=== PATIENT | female | born 2000 | race Caucasian/White ===

== ENCOUNTER 2020-11-15 17:11 | Emergency (ER) | payer MEDICAID, OTHER, SELFPAY ==
--- NOTE | 2020-11-15 21:22 | RAD REPORT ---
EXAM DESCRIPTION: RAD - Chest Single View - 11/15/2020 9:14 pm CLINICAL HISTORY: COUGH Chest pain. COMPARISON: No comparisons FINDINGS: Portable technique limits examination quality. A mild infiltrate is suspected in the medial right lung base most likely pneumonia. The heart is norm al in size. No displaced fractures. IMPRESSION: Mild medial right lung base pneumonia suspected.
[2020-11-15] MEDS ORDERED: ALBUTEROL INHALER 60 PUFF/8 GM IH ONE (21:37)
[2020-11-15] MEDS ORDERED: BENZONATATE 100 MG CAP PO ONE (21:37)
[2020-11-15] MEDS ORDERED: ONDANSETRON 4 MG (ODT) TAB ONE (21:37)
[2020-11-15 21:59] LABS: SARS-COV-2 RT PCR POSITIVE (NEGATIVE)
--- NOTE | 2020-11-15 22:06 | EDPHYS ---
Physician Documentation [facility] Name: Lydia Santizo Age: 20 yrs Sex: Female : 2000 Arrival Date: 11/15/2020 Time: 17:15 Bed 20 Private MD: ED Physician Cedric Evans HPI: 11/15 20:10 This 20 yrs old Female presents to ER via Ambulatory with complaints of cp Cough, Fever. 20:10 The patient or guardian reports cough, with productive sputum. Onset: The cp symptoms/episode began/occurred 5 day(s) ago. Associated signs and symptoms: Pertinent positives: chest pain, with cough, diarrhea, fever, nausea, sinus congestion. 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 - Social history:: Smoking status: Patient denies any tobacco usage or history of. ROS: 20:15 Constitutional: Positive for body aches, Negative for fever, poor PO intake. cp 20:15 Eyes: Negative for injury, pain, redness, and discharge. cp 20:15 ENT: Negative for drainage from ear(s), ear pain, sore throat, difficulty swallowing, difficulty handling secretions. 20:15 Cardiovascular: Positive for chest pain, with cough, Negative for edema, palpitations. 20:15 Respiratory: Positive for cough, shortness of breath, Negative for wheezing. 20:15 Abdomen/GI: Positive for nausea, Negative for abdominal pain, diarrhea, constipation, active vomiting. 20:15 Neuro: Negative for altered mental status, headache, syncope, weakness. 20:15 All other systems are negative. Exam: 20:20 Constitutional: The patient appears in no acute distress, alert, awake, non-toxic, well cp developed, well nourished. 20:20 Head/Face: Normocephalic, atraumatic. cp 20:20 Eyes: Periorbital structures: appear normal, Conjunctiva: normal, no exudate, no injection, Lids and lashes: appear normal, bilaterally. 20:20 ENT: External ear(s): are unremarkable, Nose: is normal, Mouth: Lips: moist, Oral mucosa: pink and intact, moist, Posterior pharynx: Airway: no evidence of obstruction, patent, Tonsils: are normal in appearance, erythema, is not appreciated, exudate, is not appreciated. 20:20 Neck: ROM/movement: is normal, is supple, without pain, no range of motions limitations, no meningismus. 20:20 Chest/axilla: Inspection: normal, Palpation: is normal, no crepitus, no tenderness. 20:20 Cardiovascular: Rate: normal, Rhythm: regular. 20:20 Respiratory: the patient does not display signs of respiratory distress, Respirations: normal, no use of accessory muscles, no retractions, labored breathing, is not present, Breath sounds: bronchial sounds, that are mild, are heard diffusely, stridor, is not appreciated, wheezing: is not appreciated. 20:20 Abdomen/GI: Exam negative for discomfort, distension, guarding, Inspection: abdomen appears normal. Vital Signs: 17:26 BP 125 / 88; Pulse 95; Resp 17; Temp 98.1; Pulse Ox 96% ; Weight 79.38 kg; Height 4 ft. ll1 11 in. (149.86 cm); Pain 3/10; 21:20 BP 116 / 88; Pulse 65; Resp 16; Pulse Ox 98% on R/A; vg1 17:26 Body Mass Index 35.35 (79.38 kg, 149.86 cm) ll1 17:26 LMP: 3 days ago. ll1 MDM: 20:07 Patient medically screened. cp 21:00 Differential Diagnosis: Bronchitis Influenza Sinusitis Otitis Media Viral Syndrome cp Pneumonia. 22:05 Data reviewed: vital signs, nurses notes, lab test result(s), radiologic studies, plain cp films. 22:05 Test interpretation: by ED physician or midlevel provider: plain radiologic studies. cp Counseling: I had a detailed discussion with the patient and/or guardian regarding: the historical points, exam findings, and any diagnostic results supporting the discharge/admit diagnosis, lab results, radiology results. ED course: VSS. No signs of respiratory distress and patient appears non-toxic. Will discharge to home for continued monitoring. 11/15 20:07 Order name: Strep; Complete Time: 21:28 cp 11/15 21:30 Order name: Throat Culture EDDC 01/16 21:56 Order name: Urine Dipstick--Ancillary (enter results) [facility] 11/15 21:56 Order name: Urine --Ancillary (enter results) [facility] 11/15 20:07 Order name: XRAY Chest (1 view); Complete Time: 21:28 11/15 21:29 Interpretation: Report reviewed. 11/15 20:07 Order name: Urine Dipstick-Ancillary (obtain specimen); Complete Time: 21:56 11/15 20:07 Order name: Urine Test (obtain specimen); Complete Time: 21:56 11/15 22:00 Order name: COVID-19/FLU A+B EDMS Administered Medications: 21:25 Drug: Tessalon Perle 200 mg Route: PO; vg1 22:34 Follow up: Response: No adverse reaction vg1 21:25 Drug: Albuterol HFA Inhaler 2 puffs Route: Inhalation; vg1 22:34 Follow up: Response: No adverse reaction vg1 21:25 Drug: Zofran (Ondansetron) 4 mg Route: PO; vg1 22:34 Follow up: Response: No adverse reaction vg1 22:30 Drug: Rocephin (cefTRIAXone) 1 grams Route: IM; Site: left gluteus; vg1 22:34 Follow up: Response: Medication administered at discharge. vg1 Point of Care Testing: Urine : 21:56 hCG Reading: Negative; Control Reading: Positive; jp3 Disposition: 11/16 07:03 Co-signature as Attending Physician, Cedric Evans MD. mh7 Disposition: 11/15/20 22:06 Discharged to Home. Impression: Coronavirus infection, unspecified, Pneumonia due to other specified infectious organisms. - Condition is Stable. - Discharge Instructions: Community-Acquired Pneumonia, Adult, COVID-19. - Prescriptions for Tessalon Perles 100 mg Oral Capsule - take 2 capsule by ORAL route every 8 hours As needed; 30 capsule. Zithromax Z- Justin 250 mg Oral Tablet - take 1 tablet by ORAL route as directed for 5 days Day 1 - take two (2) tablets one time. Day 2, 3, 4 , 5 take one (1) tablet once daily.; 6 tablet. Prednisone 20 mg Oral Tablet - take 1 tablet by ORAL route every 12 hours for 5 days then take 1/2 tablet every 12 hours for 5 days; 10 tablet. Albuterol Sulfate 90 mcg/actuation - inhale 1-2 puff by INHALATION route every 4-6 hours; 1 Inhaler. Augmentin 875- 125 mg Oral Tablet - take 1 tablet by ORAL route every 12 hours for 10 days; 20 tablet. - Medication Reconciliation Form, Thank You Letter, Antibiotic Education, Prescription Opioid Use form. - Follow up: Private Physician; When: 2 - 3 days; Reason: Worsening of condition. - Problem is new. - Symptoms have improved. Signatures: Dispatcher [employer] EDMS Baljit Croft PA PA cp Jose Roberto DomenicaJamila mw2 María Hernandez, RN RN vg1 Fariha Peck RN RN ll1 Cedric Evans MD MD mh7 Corrections: (The following items were deleted from the chart) 11/15 20:53 20:08 Influenza Screen (A \T\ B)+BA.LAB.BRZ ordered. EDMS EDMS 20:54 20:07 CORONAVIRUS+MR.LAB.BRZ ordered. EDDC EDMS 22:32 22:06 11/15/2020 22:06 Discharged to Home. Impression: Coronavirus infection, mw2 unspecified; Pneumonia due to other specified infectious organisms. Condition is Stable. Forms are Medication Reconciliation Form, Thank You Letter, Antibiotic Education, Prescription Opioid Use. Follow up: Private Physician; When: 2 - 3 days; Reason: Worsening of condition. Problem is new. Symptoms have improved. cp
--- NOTE | 2020-11-15 22:06 | ER ---
Nurse's Notes [facility] Name: Lydia Santizo Age: 20 yrs Sex: Female : 2000 Arrival Date: 11/15/2020 Time: 17:15 Bed 20 Private MD: Diagnosis: Coronavirus infection, unspecified;Pneumonia due to other specified infectious organisms Presentation: 11/15 17:26 Chief complaint: Patient states: Cough, congestion, dry heaves, fatigue, decreased ll1 appetite, nasal burning, and body aches for 5 days. OTC cold medication does help. Coronavirus screen: Client denies travel out of the [place] in the last 14 days. congestion, cough unrelated to allergies, diarrhea, fatigue, headache, muscle pain, nausea, Client presents with at least one sign or symptom that may indicate coronavirus-19. Standard/surgical mask placed on the client. Ebola Screen: Patient denies travel to an Ebola-affected area in the 21 days before illness onset. Initial Sepsis Screen: Does the patient meet any 2 criteria? HR > 90 bpm. No. Patient's initial sepsis screen is negative. Does the patient have a suspected source of infection? Yes: Productive cough/pneumonia. Risk Assessment: Do you want to hurt yourself or someone else? Patient reports no desire to harm self or others. Onset of symptoms was November 10, 2020. 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 - Social history:: Smoking status: Patient denies any tobacco usage or history of. Screenin:38 Abuse screen: Denies threats or abuse. Nutritional screening: No deficits noted. vg1 Tuberculosis screening: No symptoms or risk factors identified. Fall Risk None identified. Assessment: 21:20 General: Appears in no apparent distress. comfortable, Behavior is calm, cooperative. vg1 Pain: Denies pain. Neuro: Level of Consciousness is awake, alert, obeys commands, Oriented to person, place, time, situation. Cardiovascular: Patient's skin is warm and dry. Respiratory: Reports cough that is productive, Airway is patent Respiratory effort is even, unlabored, Respiratory pattern is regular, symmetrical, Breath sounds are clear bilaterally. GI: No signs and/or symptoms were reported involving the gastrointestinal system. : No signs and/or symptoms were reported regarding the genitourinary system. EENT: No signs and/or symptoms were reported regarding the EENT system. Derm: Skin is intact, is healthy with good turgor. Musculoskeletal: Circulation, motion, and sensation intact. Vital Signs: 17:26 BP 125 / 88; Pulse 95; Resp 17; Temp 98.1; Pulse Ox 96% ; Weight 79.38 kg; Height 4 ft. ll1 11 in. (149.86 cm); Pain 3/10; 21:20 BP 116 / 88; Pulse 65; Resp 16; Pulse Ox 98% on R/A; vg1 17:26 Body Mass Index 35.35 (79.38 kg, 149.86 cm) ll1 17:26 LMP: 3 days ago. ll1 ED Course: 17:15 Patient arrived in ED. ds1 17:25 Arm band placed on. ll1 17:28 Triage completed. ll1 19:47 Baljit Croft PA is PHCP. cp 19:47 Cedric Evans MD is Attending Physician. cp 20:16 María Hernandez, RN is Primary Nurse. vg1 21:14 XRAY Chest (1 view) In Process Unspecified. EDMS 21:38 Patient has correct armband on for positive identification. Bed in low position. Call vg1 light in reach. 21:45 Urine collected: clean catch specimen, clear, blood tinged. jp3 22:33 No provider procedures requiring assistance completed. Patient did not have IV access vg1 during this emergency room visit. Administered Medications: 21:25 Drug: Tessalon Perle 200 mg Route: PO; vg1 22:34 Follow up: Response: No adverse reaction vg1 21:25 Drug: Albuterol HFA Inhaler 2 puffs Route: Inhalation; vg1 22:34 Follow up: Response: No adverse reaction vg1 21:25 Drug: Zofran (Ondansetron) 4 mg Route: PO; vg1 22:34 Follow up: Response: No adverse reaction vg1 22:30 Drug: Rocephin (cefTRIAXone) 1 grams Route: IM; Site: left gluteus; vg1 22:34 Follow up: Response: Medication administered at discharge. vg1 Point of Care Testing: Urine : 21:56 hCG Reading: Negative; Control Reading: Positive; jp3 Outcome: 22:06 Discharge ordered by . cp 22:32 Patient left the ED. mw2 22:33 Discharged to home ambulatory. vg1 22:33 Condition: stable 22:33 Discharge instructions given to patient, Instructed on discharge instructions, follow up and referral plans. medication usage, Demonstrated understanding of instructions, follow-up care, medications, Prescriptions given X 4. Signatures: Dispatcher [employer] EDMS Pam Chaney ds1 Baljit Croft PA PA cp [place], MyKena mw2 Leif Blum jp3 María Hernandez, RN RN vg1 Fariha Peck RN RN ll1
[2020-11-15 22:07] LABS: Urine Blood 3+ (NEG); Urine Glucose TRACE (NEG); Urine Protein 2+ (NEG); Urine Specific Gravity >1.030 (1.005-1.030); Urine pH 5.5 (5.0-7.0)
[2020-11-15] MEDS ORDERED: LIDOCAINE 1% MPF 2 ML AMPULE ONE (22:30)
[2020-11-15] MEDS ORDERED: CEFTRIAXONE 1000 MG/VIAL ONE (22:30)
[2020-11-15 22:38] VITALS: TEMP 98.1
[2020-11-15 22:39] VITALS: BP 116/88; O2SAT 98
== END 2020-11-15 22:32 | disposition home or self-care (01) ==
LOC: ER 17:11
DX: U07.1 COVID-19 (principal); J12.82 Pneumonia due to coronavirus disease 2019; Z88.1 Allergy status to other antibiotic agents
CPT/HCPCS: 0240U; 71045; 81003; 81025; 87070; 87081; 96372; 99284; J2001

== ENCOUNTER 2021-03-07 10:27 | Emergency (ER) | payer MEDICAID ==
[2021-03-07 10:55] LABS: Urine Blood Negative (Negative); Urine Glucose Negative (Negative); Urine Protein Negative (Negative); Urine Specific Gravity >=1.030 (1.005-1.030)
[2021-03-07 11:29] LABS: Absolute Lymphocytes (CBC) 2.4 K/uL (0.7-4.9); Basophils % 0.5 % (0-1.3); Hematocrit 37.7 % (36.0-45.0); Lymphocytes % 28.2 % (15.3-44.8); MPV 7.9 fL (7.6-11.3); RBC Red Blood Cell Count 4.65 M/uL (3.86-4.86)
--- NOTE | 2021-03-07 11:30 | RAD REPORT ---
EXAM DESCRIPTION: RAD - Chest Single View - 03/07/2021 11:13 am CLINICAL HISTORY: CHEST PAIN Chest pain. COMPARISON: Chest Single View dated 11/15/2020 FINDINGS: Portable technique limits examination quality. The lungs are grossly clear. The heart is normal in size. No displaced fractures. IMPRESSION: No acute intrathoracic process suspected.
[2021-03-07 11:40] LABS: ALT/SGPT 18 U/L (12-78); AST/SGOT 9 U/L (15-37); Albumin 3.6 g/dL (3.4-5.0); Alkaline Phosphatase 114 U/L (45-117); BUN Blood Urea Nitrogen 11 mg/dL (7-18); Bicarbonate 27 mmol/L (21-32); Bilirubin Direct < 0.1 mg/dL (0-0.2); Bilirubin Total 0.3 mg/dL (0.2-1.0); Glucose Level 95 mg/dL (74-106); Lipase 56 U/L (73-393); Potassium 3.9 mmol/L (3.5-5.1); Protein, Total 8.7 g/dL (6.4-8.2); Sodium Level 140 mmol/L (136-145); Troponin (Emerg Dept Use Only) < 0.02 ng/mL (0.0-0.045)
--- NOTE | 2021-03-07 11:45 | EDPHYS ---
Physician Documentation [facility] Name: Lydia Santizo Age: 21 yrs Sex: Female : 2000 Arrival Date: 03/07/2021 Time: 10:28 Bed 8 Private MD: NEVIL[place] Physician Baljit Ledbetter HPI: 03/07 11:01 This 21 yrs old Female presents to ER via Ambulatory with complaints of beverly Abdominal Pain, Diarrhea. 11:01 The patient presents to the emergency department with nausea, vomiting, diarrhea, that beverly is intermittent. Onset: The symptoms/episode began/occurred 1 day(s) ago. Possible causes: unknown. The symptoms are aggravated by nothing. The symptoms are alleviated by nothing. Associated signs and symptoms: The patient has no apparent associated signs or symptoms. Severity of symptoms: At their worst the symptoms were mild in the emergency department the symptoms are unchanged. The patient has not experienced similar symptoms in the past. 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 - Social history:: Smoking status: Patient denies any tobacco usage or history of. ROS: 11:02 Constitutional: Negative for fever, chills, and weight loss, Eyes: Negative for injury, beverly pain, redness, and discharge, ENT: Negative for injury, pain, and discharge, Neck: Negative for injury, pain, and swelling, Respiratory: Negative for shortness of breath, cough, wheezing, and pleuritic chest pain, Back: Negative for injury and pain, : Negative for injury, bleeding, discharge, and swelling, MS/Extremity: Negative for injury and deformity, Skin: Negative for injury, rash, and discoloration, Neuro: Negative for headache, weakness, numbness, tingling, and seizure, Psych: Negative for depression, anxiety, suicide ideation, homicidal ideation, and hallucinations, Allergy/Immunology: Negative for hives, rash, and allergies, Endocrine: Negative for neck swelling, polydipsia, polyuria, polyphagia, and marked weight changes, Hematologic/Lymphatic: Negative for swollen nodes, abnormal bleeding, and unusual bruising. 11:02 Cardiovascular: Positive for chest pain, of the chest. 11:02 Abdomen/GI: Positive for nausea and vomiting, diarrhea. Exam: 11:02 Constitutional: This is a well developed, well nourished patient who is awake, alert, beverly and in no acute distress. Head/Face: Normocephalic, atraumatic. Eyes: Pupils equal round and reactive to light, extra-ocular motions intact. Lids and lashes normal. Conjunctiva and sclera are non-icteric and not injected. Cornea within normal limits. Periorbital areas with no swelling, redness, or edema. ENT: Nares patent. No nasal discharge, no septal abnormalities noted. Tympanic membranes are normal and external auditory canals are clear. Oropharynx with no redness, swelling, or masses, exudates, or evidence of obstruction, uvula midline. Mucous membranes moist. Neck: Trachea midline, no thyromegaly or masses palpated, and no cervical lymphadenopathy. Supple, full range of motion without nuchal rigidity, or vertebral point tenderness. No Meningismus. Chest/axilla: Normal chest wall appearance and motion. Nontender with no deformity. No lesions are appreciated. Cardiovascular: Regular rate and rhythm with a normal S1 and S2. No gallops, murmurs, or rubs. Normal PMI, no JVD. No pulse deficits. Respiratory: Lungs have equal breath sounds bilaterally, clear to auscultation and percussion. No rales, rhonchi or wheezes noted. No increased work of breathing, no retractions or nasal flaring. Abdomen/GI: Soft, non-tender, with normal bowel sounds. No distension or tympany. No guarding or rebound. No evidence of tenderness throughout. Back: No spinal tenderness. No costovertebral tenderness. Full range of motion. Skin: Warm, dry with normal turgor. Normal color with no rashes, no lesions, and no evidence of cellulitis. MS/ Extremity: Pulses equal, no cyanosis. Neurovascular intact. Full, normal range of motion. Neuro: Awake and alert, GCS 15, oriented to person, place, time, and situation. Cranial nerves II-XII grossly intact. Motor strength 5/5 in all extremities. Sensory grossly intact. Cerebellar exam normal. Normal gait. Psych: Awake, alert, with orientation to person, place and time. Behavior, mood, and affect are within normal limits. 11:02 Musculoskeletal/extremity: Weight bearing: able to fully bear weight, DVT Exam: No signs of deep vein thrombosis. no pain, no swelling, no tenderness, negative Homans' sign noted on exam, no appreciated bluish discoloration, no erythema, no increased warmth. 11:44 ECG was reviewed by the Attending Physician. [facility] Vital Signs: 10:39 BP 119 / 75; Pulse 80; Resp 17; Temp 97.6(TE); Pulse Ox 100% on R/A; Weight 79.38 kg; jl7 Height 4 ft. 11 in. (149.86 cm); Pain 5/10; 10:39 Body Mass Index 35.35 (79.38 kg, 149.86 cm) jl7 MDM: 10:43 Patient medically screened. [facility] 11:04 Differential diagnosis: abnormal EKG, acute myocardial infarction, chest wall pain, beverly cholecystitis, Cholelithiasis costochondritis, Nonspecific abd pain, gastritis, pancreatitis, viral gastroenteritis, gastroenteritis, gastritis, hiatal hernia, peptic ulcer disease, pneumonia, pulmonary embolus, unstable angina. HEART Score: History: Slightly Suspicious (0), ECG: Normal (0), Age: < or = 45 years (0), Risk Factors: No Risk Factors Known (0), Troponin: < or = 1 x Normal Limit (0). The patient's deep vein thrombosis risk score was calculated as follows: Total Score: 0. This patient was found to be at low risk for a deep vein thrombosis by using the Well's assessment criteria. The patient's pulmonary embolism risk score was calculated as follows: Total Score: 0-2 points. This patient was found to be at low risk for a pulmonary embolism by using the Well's assessment criteria. NADER Risk Score: TOTAL SCORE = 0. Data reviewed: vital signs, nurses notes, lab test result(s), radiologic studies, plain films. Data interpreted: night monitor: rate is 80 beats/min, rhythm is regular, Pulse oximetry: on. Test interpretation: by ED physician or midlevel provider: ECG, plain radiologic studies. Counseling: I had a detailed discussion with the patient and/or guardian regarding: the historical points, exam findings, and any diagnostic results supporting the discharge/admit diagnosis, lab results, radiology results. 03/07 10:54 Order name: Basic Metabolic Panel; Complete Time: 11:44 [facility] 03/07 10:54 Order name: CBC with Diff; Complete Time: 11:44 [facility] 03/07 10:54 Order name: Hepatic Function; Complete Time: 11:44 [facility] 03/07 10:54 Order name: Lipase; Complete Time: 11:44 [facility] 03/07 10:54 Order name: D-Dimer; Complete Time: 11:44 [facility] 03/07 10:54 Order name: Troponin (emerg Dept Use Only); Complete Time: 11:44 [facility] 03/07 10:54 Order name: IV Saline Lock; Complete Time: 11:15 [facility] 03/07 10:54 Order name: EKG; Complete Time: 10:55 [facility] 03/07 10:54 Order name: Chest Single View XRAY; Complete Time: 11:44 [facility] 03/07 10:54 Order name: Urine Dipstick-Ancillary; Complete Time: 11:44 [facility] 03/07 10:55 Order name: Urine --Ancillary (enter results); Complete Time: 11:44 03/07 12:05 Order name: SARS-COV-2 RT PCR [facility] 03/07 10:54 Order name: Labs collected and sent; Complete Time: 11:15 [facility] 03/07 10:54 Order name: Urine Dipstick-Ancillary (obtain specimen); Complete Time: 11:15 [facility] 03/07 10:54 Order name: Urine Test (obtain specimen); Complete Time: 11:15 [facility] 03/07 10:54 Order name: EKG - Nurse/Tech; Complete Time: 11:56 [facility] EC:44 Rate is 65 beats/min. Rhythm is regular. QRS [place] is Normal. OH interval is normal. QRS beverly interval is normal. QT interval is normal. No Q waves. T waves are Normal. No ST changes noted. Clinical impression: Normal ECG and No evidence of ischemia. Interpreted by me. Reviewed by me. Administered Medications: 11:15 Drug: NS 0.9% 1000 ml Route: IV; Rate: 1 bolus; Site: right antecubital; sv 12:08 Follow up: Response: No adverse reaction; IV Status: Completed infusion; IV Intake: sv 1000ml Disposition: 03/07/21 11:45 Discharged to Home. Impression: Diarrhea, unspecified, Abdominal tenderness, Chest pain, unspecified - non cardiac. - Condition is Stable. - Discharge Instructions: Abdominal Pain, Adult, Nonspecific Chest Pain, Diarrhea, Adult, Abdominal Pain, Adult, [id number], Nonspecific Chest Pain, [id number], Diarrhea, Adult, [id number]-ez-[id number]. - Prescriptions for Zofran 4 mg Oral Tablet - take 1 tablet by ORAL route every 12 hours As needed; 20 tablet. - Medication Reconciliation Form, Thank You Letter, Antibiotic Education, Prescription Opioid Use, Work release form form. - Follow up: Private Physician; When: 2 - 3 days; Reason: Recheck today's complaints, Re-evaluation by your physician. - Problem is new. - Symptoms have improved. Signatures: Dispatcher [employer] [facility] Jacinta Drake RN RN Baljit Song MD MD cha Leal, Jahala, RN RN jl7 Corrections: (The following items were deleted from the chart) 11:24 10:55 CORONAVIRUS+MR.LAB.BRZ ordered. [facility] EDPR 12:08 11:45 03/07/2021 11:45 Discharged to Home. Impression: Diarrhea, unspecified; Abdominal sv tenderness; Chest pain, unspecified - non cardiac. Condition is Stable. Discharge Instructions: Abdominal Pain, Adult, Nonspecific Chest Pain, Diarrhea, Adult, Abdominal Pain, Adult, [id number], Nonspecific Chest Pain, Zldt-[id number], Diarrhea, Adult, Gyyr-cq-[id number]. Prescriptions for Zofran 4 mg Oral Tablet - take 1 tablet by ORAL route every 12 hours As needed; 20 tablet. and Forms are Medication Reconciliation Form, Thank You Letter, Antibiotic Education, Prescription Opioid Use. Follow up: Private Physician; When: 2 - 3 days; Reason: Recheck today's complaints, Re-evaluation by your physician. Problem is new. Symptoms have improved. beverly
--- NOTE | 2021-03-07 11:45 | ER ---
Nurse's Notes [facility] Name: Lydia Santizo Age: 21 yrs Sex: Female : 2000 Arrival Date: 03/07/2021 Time: 10:28 Bed 8 Private MD: Diagnosis: Diarrhea, unspecified;Abdominal tenderness;Chest pain, unspecified-non cardiac Presentation: 03/07 10:39 Chief complaint: Patient states: Diarrhea, nausea and gagging x 3 days. Coronavirus jl7 screen: Client denies travel out of the [place] in the last 14 days. diarrhea, Client presents with at least one sign or symptom that may indicate coronavirus-19. Standard/surgical mask placed on the client. Provider contacted for isolation considerations. Ebola Screen: No symptoms or risks identified at this time. Initial Sepsis Screen: Does the patient meet any 2 criteria? No. Patient's initial sepsis screen is negative. Does the patient have a suspected source of infection? No. Patient's initial sepsis screen is negative. Risk Assessment: Do you want to hurt yourself or someone else? Patient reports no desire to harm self or others. Onset of symptoms was March 04, 2021. Care prior to arrival: None. 10:39 Method Of Arrival: Ambulatory jl7 10:39 Acuity: MIRACLE 3 jl7 Triage Assessment: 10:41 General: Appears in no apparent distress. uncomfortable, Behavior is calm, cooperative, jl7 appropriate for age. Pain: Complains of pain in umbilical area Pain currently is 5 out of 10 on a pain scale. GI: Reports diarrhea, nausea. 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 - Social history:: Smoking status: Patient denies any tobacco usage or history of. Screenin:05 Abuse screen: Denies threats or abuse. Denies injuries from another. Nutritional sv screening: No deficits noted. Tuberculosis screening: No symptoms or risk factors identified. Fall Risk None identified. Assessment: 11:05 General: Appears in no apparent distress. comfortable, well groomed, well developed, sv Behavior is calm, cooperative, appropriate for age. Pain: Denies pain. Neuro: Level of Consciousness is awake, alert, obeys commands, Oriented to person, place, time, situation, Moves all extremities. Full function Gait is steady, Speech is normal. Respiratory: Respiratory effort is even, unlabored, Respiratory pattern is regular, symmetrical. GI: Abdomen is flat, non-distended, Abd is soft and non tender X 4 quads. Reports diarrhea, Patient currently denies abdominal pain. Derm: Skin is intact, Skin is pink, warm \T\ dry. 12:00 Reassessment: Patient appears in no apparent distress at this time. Patient and/or sv family updated on plan of care and expected duration. Pain level reassessed. Patient is alert, oriented x 3, equal unlabored respirations, skin warm/dry/pink. Vital Signs: 10:39 BP 119 / 75; Pulse 80; Resp 17; Temp 97.6(TE); Pulse Ox 100% on R/A; Weight 79.38 kg; jl7 Height 4 ft. 11 in. (149.86 cm); Pain 5/10; 10:39 Body Mass Index 35.35 (79.38 kg, 149.86 cm) jl7 ED Course: 10:28 Patient arrived in ED. ds1 10:41 Triage completed. jl7 10:41 Arm band placed on right wrist. jl7 10:43 Baljit Ledbetter MD is Attending Physician. [facility] 10:57 Jacinta Drake, RN is Primary Nurse. sv 11:05 Patient has correct armband on for positive identification. Bed in low position. Call sv light in reach. Pulse ox on. NIBP on. Door closed. Head of bed elevated. 11:05 COVID swab sent to lab. Inserted saline lock: 20 gauge in right antecubital area, using sv aseptic technique. Blood collected. Flushed right antecubital with 5 ml normal saline. 11:12 Chest Single View XRAY In Process Unspecified. EDMS 12:08 No provider procedures requiring assistance completed. IV discontinued, intact, sv bleeding controlled, No redness/swelling at site. Pressure dressing applied. Administered Medications: 11:15 Drug: NS 0.9% 1000 ml Route: IV; Rate: 1 bolus; Site: right antecubital; sv 12:08 Follow up: Response: No adverse reaction; IV Status: Completed infusion; IV Intake: sv 1000ml Intake: 12:08 IV: 1000ml; Total: 1000ml. sv Outcome: 11:45 Discharge ordered by . [facility] 12:08 Patient left the ED. sv 12:08 Discharged to home ambulatory. sv 12:08 Condition: stable 12:08 Condition: improved 12:08 Discharge instructions given to patient, Instructed on discharge instructions, follow up and referral plans. medication usage, Demonstrated understanding of instructions, follow-up care, medications, Prescriptions given X 1. Signatures: Dispatcher [employer] Jacinta Keyes, RN RN Baljit Song MD MD cha Sanford, Pam ds1 Gautam Pettit RN RN jl7
[2021-03-07 12:23] VITALS: BP 119/75; TEMP 97.6; O2SAT 100
--- NOTE | 2021-03-08 12:14 | EKG ---
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
== END 2021-03-07 12:08 | disposition home or self-care (01) ==
LOC: ER 10:27
DX: R19.7 Diarrhea, unspecified (principal); R07.89 Other chest pain; R10.819 Abdominal tenderness, unspecified site; Z20.822 Contact with and (suspected) exposure to COVID-19
CPT/HCPCS: 93005; 85025; 80048; 36415; 81025; 85379; 80076; 81003; 84484; 83690; 71045; U0003; 96360; 99284

== ENCOUNTER 2021-08-26 19:29 | Emergency (ER) | payer MEDICAID ==
--- NOTE | 2021-08-26 21:32 | ER ---
Nurse's Notes [facility] Name: Lydia Santizo Age: 21 yrs Sex: Female : 2000 Arrival Date: 08/26/2021 Time: 19:34 Bed Waiting Private MD: Diagnosis: Presentation: 08/26 19:54 Chief complaint:. Coronavirus screen: Vaccine status: Patient reports being df1 unvaccinated. Client presents with at least one sign or symptom that may indicate coronavirus-19. Standard/surgical mask placed on the client. The client reports previous COVID testing was negative. Date of collection: February 2021. Ebola Screen: Patient negative for fever greater than or equal to 101.5 degrees Fahrenheit, and additional compatible Ebola Virus Disease symptoms Patient denies exposure to infectious person. Patient denies travel to an Ebola-affected area in the 21 days before illness onset. Initial Sepsis Screen: Does the patient meet any 2 criteria? No. Patient's initial sepsis screen is negative. Does the patient have a suspected source of infection? No. Patient's initial sepsis screen is negative. Risk Assessment: Do you want to hurt yourself or someone else? Patient reports no desire to harm self or others. Onset of symptoms was August 25, 2021 at 10:00. 19:54 Method Of Arrival: Ambulatory df1 19:54 Acuity: MIRACLE 3 df1 19:58 Note Pt states h/a and diarrhea since yesterday morning. Pt states same symptoms she df1 had when she had covid last October. No meds taken for pain. 21:29 Note Pt states she wanted to leave to registration. 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 - Social history:: Smoking status: Patient denies any tobacco usage or history of. Patient uses street drugs, marijuana. Vital Signs: 19:54 BP 100 / 56; Pulse 95; Resp 18; Temp 98.5; Pulse Ox 98% on R/A; Weight 83.91 kg; Height df1 4 ft. 11 in. (149.86 cm); Pain 8/10; 19:54 Body Mass Index 37.37 (83.91 kg, 149.86 cm) df1 ED Course: 19:34 Patient arrived in ED. cf2 19:56 Triage completed. df1 20:37 SARS-COV-2 RT PCR Sent. df1 Administered Medications: No medications were administered Outcome: 21:31 Patient left the ED. df1 Signatures: Dante Matias cf2 Sara Brock df1
[2021-08-26 22:04] LABS: Urine Blood Negative (Negative); Urine Glucose Negative (Negative); Urine Protein Negative (Negative); Urine Specific Gravity >=1.030 (1.005-1.030); Urine pH 6.5 (5.0-7.0)
[2021-08-26 22:11] VITALS: BP 100/56; TEMP 98.5; O2SAT 98
[2021-08-26 23:27] LABS: Urine Specific Gravity/Preg >1.030 (1.005-1.030)
== END 2021-08-26 21:31 | disposition left against medical advice (07) ==
LOC: ER 19:29
DX: Z53.21 Procedure and treatment not carried out due to patient leaving prior to being seen by health care provider (principal); Z20.822 Contact with and (suspected) exposure to COVID-19
CPT/HCPCS: 81025; 81003; 99282; U0003

== ENCOUNTER 2022-03-11 15:41 | Emergency (ER) | payer SELFPAY ==
[2022-03-11] MEDS ORDERED: LIDOCAINE 1% W/EPI 1:100,000 MDV 20 ML VIAL ONE (16:20)
--- NOTE | 2022-03-11 16:45 | ER ---
Nurse's Notes [facility] Name: Lydia Santizo Age: 22 yrs Sex: Female : 2000 Arrival Date: 03/11/2022 Time: 15:43 Bed 28 Private MD: Diagnosis: Cutaneous abscess of right axilla Presentation: 03/11 15:59 Chief complaint: Patient states: abscess to R axilla x 1-2 weeks after having possible ss allergic reaction to new deodorant. Coronavirus screen: Client denies travel out of the [place] in the last 14 days. Ebola Screen: Patient denies exposure to infectious person. Patient denies travel to an Ebola-affected area in the 21 days before illness onset. Initial Sepsis Screen: Does the patient meet any 2 criteria? No. Patient's initial sepsis screen is negative. Does the patient have a suspected source of infection? No. Patient's initial sepsis screen is negative. Risk Assessment: Do you want to hurt yourself or someone else? Patient reports no desire to harm self or others. Onset of symptoms was February 25, 2022. 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 - Social history:: Smoking status: Patient denies any tobacco usage or history of. Screenin:04 Abuse screen: Denies threats or abuse. Denies injuries from another. Nutritional ss screening: No deficits noted. Tuberculosis screening: Never had TB. Fall Risk None identified. Assessment: 16:04 General: Appears in no apparent distress. comfortable, Behavior is calm, cooperative. ss Pain: Complains of pain in R axilla Pain currently is 7 out of 10 on a pain scale. Quality of pain is described as burning, tender, Pain began 1-2 weeks ago Is continuous. Neuro: Iyer Agitation-Sedation Scale (RASS): 0 - Alert and Calm Level of Consciousness is awake, alert, obeys commands, Oriented to person, place, time, situation. Cardiovascular: Capillary refill < 3 seconds is brisk in bilateral fingers. Respiratory: Airway is patent Respiratory effort is even, unlabored, Respiratory pattern is regular, symmetrical. GI: No signs and/or symptoms were reported involving the gastrointestinal system. EENT: No signs and/or symptoms were reported regarding the EENT system. Derm: Skin is intact, is healthy with good turgor, Skin is dry. Derm: Abscess located on R axilla is nickel sized, has no drainage, is raised. Vital Signs: 15:59 BP 140 / 77; Pulse 90; Resp 14; Temp 97.9(TE); Pulse Ox 99% on R/A; Weight 79.38 kg; ss Height 4 ft. 11 in. (149.86 cm); Pain 7/10; 15:59 Body Mass Index 35.35 (79.38 kg, 149.86 cm) ED Course: 15:43 Patient arrived in ED. mr 15:54 Baljit Croft PA is PHCP. cp 15:54 Andrae Johnson DO is Attending Physician. cp 16:02 Triage completed. ss 16:02 Arm band placed on right wrist. ss 16:04 Gianna Cano, BENNY is Primary Nurse. ss 16:04 Patient has correct armband on for positive identification. ss 16:53 No provider procedures requiring assistance completed. Patient did not have IV access ld1 during this emergency room visit. Administered Medications: 16:30 Drug: Lidocaine-Epinephrine -1%: (1:100,000) 5 ml {Note: Administered by MARC Buitrago to R axilla.} Volume: 20 ml; Route: Infiltration; Medication: 16:04 VIS not applicable for this client. Outcome: 16:45 Discharge ordered by MD. cp 16:53 Discharged to home ambulatory. ld1 16:53 Condition: stable 16:53 Discharge instructions given to patient, Instructed on discharge instructions, follow up and referral plans. medication usage, Demonstrated understanding of instructions, follow-up care, medications, Prescriptions given X 2. 16:54 Patient left the ED. ld1 Signatures: Megan Dumont mr Gianna Cano, BENNY RN Baljit Croft PA PA cp Dibbern, Lauren, RN RN ld1
--- NOTE | 2022-03-11 16:45 | EDPHYS ---
Physician Documentation [facility] Name: Lydia Santizo Age: 22 yrs Sex: Female : 2000 Arrival Date: 03/11/2022 Time: 15:43 Bed 28 Private MD: ED Physician Andrae Johnson HPI: 03/11 16:15 This 22 yrs old Female presents to ER via Ambulatory with complaints of cp Abscess. 16:15 The patient presents with an abscess of the right arm axilla. Description: swollen, cp painful. 16:15 Onset: The symptoms/episode began/occurred 1-2 weeks ago. cp 16:15 Possible cause(s): use of new deodorant . Associated signs and symptoms: The patient cp has no apparent associated signs or symptoms. 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 - Social history:: Smoking status: Patient denies any tobacco usage or history of. ROS: 16:20 Skin: Positive for abscess, of the right arm axilla. cp 16:20 Constitutional: Negative for body aches, chills, fever. cp 16:20 Respiratory: Negative for cough, shortness of breath. 16:20 Abdomen/GI: Negative for abdominal pain. 16:20 All other systems are negative. Exam: 16:25 Constitutional: The patient appears in no acute distress, alert, awake, non-toxic, well cp developed, well nourished. 16:25 Head/Face: Normocephalic, atraumatic. cp 16:25 Cardiovascular: Rate: normal. 16:25 Respiratory: the patient does not display signs of respiratory distress, Respirations: normal, no use of accessory muscles, no retractions, labored breathing, is not present. 16:25 Abdomen/GI: Inspection: abdomen appears normal, Palpation: abdomen is soft and non-tender, in all quadrants. 16:25 Back: pain, is absent, ROM is normal. 16:25 Skin: abscess, that is small, of the right arm axilla, minimal surrounding erythema noted. Vital Signs: 15:59 BP 140 / 77; Pulse 90; Resp 14; Temp 97.9(TE); Pulse Ox 99% on R/A; Weight 79.38 kg; ss Height 4 ft. 11 in. (149.86 cm); Pain 7/10; 15:59 Body Mass Index 35.35 (79.38 kg, 149.86 cm) Procedures: 16:45 I \T\ D: Incision and drainage was performed for an abscess of the right arm axilla cp Prepped with Betadine, Anesthetized with 5 ml's 1% Lidocaine w/ Epi. area pierced with 18 gauge needle, very small amount purulent material expressed. Area cleaned and dressed with 4 by 4 guaze. Patient tolerated well. MDM: 16:10 Patient medically screened. cp 16:45 Data reviewed: vital signs, nurses notes, and as a result, I will discharge patient. 16:45 Counseling: I had a detailed discussion with the patient and/or guardian regarding: the cp historical points, exam findings, and any diagnostic results supporting the discharge/admit diagnosis, to return to the emergency department if symptoms worsen or persist or if there are any questions or concerns that arise at home. Response to treatment: the patient's symptoms have markedly improved after treatment, and as a result, I will discharge patient. 03/11 16:11 Order name: I\T\D Setup; Complete Time: 16:16 cp 03/11 16:45 Order name: Wound dressing cp Administered Medications: 16:30 Drug: Lidocaine-Epinephrine -1%: (1:100,000) 5 ml {Note: Administered by MARC Buitrago to R axilla.} Volume: 20 ml; Route: Infiltration; Disposition Summary: 03/11/22 16:45 Discharge Ordered Location: Home cp Problem: new cp Symptoms: have improved cp Condition: Stable cp Diagnosis - Cutaneous abscess of right axilla cp Followup: cp - With: Private Physician - When: 2 - 3 days - Reason: Worsening of condition Discharge Instructions: - Discharge Summary Sheet cp - Skin Abscess cp - Incision and Drainage cp - Incision and Drainage, Care After cp Forms: - Medication Reconciliation Form cp - Thank You Letter cp - Antibiotic Education cp - Prescription Opioid Use cp Prescriptions: - Ibuprofen 800 mg Oral Tablet - take 1 tablet by ORAL route every 8 hours As needed take with food; 30 tablet; cp Refills: 0, Product Selection Permitted - Doxycycline Monohydrate 100 mg Oral Tablet - take 1 tablet by ORAL route every 12 hours for 7 days; 14 tablet; Refills: 0, cp Product Selection Permitted Addendum: 03/14/2022 10:30 Co-signature as Attending Physician, Andrae PERRIN was immediately available on-site m s3 in the Emergency Department for consultation in the care of the patient. . Signatures: Gianna Cano RN RN ss Baljit Croft PA PA Andrae Aguilar DO DO ms3
[2022-03-11 18:08] VITALS: BP 140/77; TEMP 97.9; O2SAT 99
== END 2022-03-11 16:54 | disposition home or self-care (01) ==
LOC: ER 15:41
PROC: 0H9BXZZ Drainage of Right Upper Arm Skin, External Approach (ICD-10-PCS; principal; 2022-03-11)
DX: L02.411 Cutaneous abscess of right axilla (principal); Z88.1 Allergy status to other antibiotic agents; Z88.2 Allergy status to sulfonamides
CPT/HCPCS: 99283

== ENCOUNTER 2022-04-06 14:27 | Emergency (ER) | payer SELFPAY ==
[2022-04-06 15:06] LABS: Urine Blood Trace-intact (Negative); Urine Glucose Negative (Negative); Urine Protein Negative (Negative); Urine Specific Gravity >=1.030 (1.005-1.030)
[2022-04-06 15:36] LABS: Urine Bacteria 20-50 /HPF (<20); Urine Mucus 1+ /HPF (NONE SEEN); Urine RBC <5 /HPF (NONE SEEN)
[2022-04-06] MEDS ORDERED: ONDANSETRON 4 MG (ODT) TAB ONE (15:41)
--- NOTE | 2022-04-06 16:24 | EDPHYS ---
Physician Documentation [facility] Name: Lydia Santizo Age: 22 yrs Sex: Female : 2000 Arrival Date: 04/06/2022 Time: 14:30 Bed 15 Private MD: ED Physician Brayan Walker HPI: 04/06 15:00 This 22 yrs old Female presents to ER via Ambulatory with complaints of cp Nausea, Fever. 15:00 The patient presents to the emergency department with nausea, that is mild. Onset: The cp symptoms/episode began/occurred 2 day(s) ago. Possible causes: unknown. Associated signs and symptoms: Pertinent positives: nausea, subjective fevers, sweats, chills, Pertinent negatives: abdominal pain, constipation, diarrhea, vomiting. Severity of symptoms: in the emergency department the symptoms are unchanged. The patient has experienced a previous episode, when diagnosed with COVID-19. 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 - Social history:: Smoking status: Patient denies any tobacco usage or history of. ROS: 15:05 Constitutional: Positive for chills, sweats, Negative for body aches, fever, poor PO cp intake. 15:05 Eyes: Negative for injury, pain, redness, and discharge. cp 15:05 ENT: Negative for drainage from ear(s), ear pain, sore throat, difficulty swallowing, difficulty handling secretions. 15:05 Cardiovascular: Negative for chest pain. 15:05 Respiratory: Negative for cough, shortness of breath, wheezing. 15:05 Abdomen/GI: Positive for nausea, Negative for abdominal pain, vomiting, diarrhea, constipation. 15:05 Neuro: Negative for altered mental status, headache, weakness. 15:05 All other systems are negative. Exam: 15:20 Constitutional: The patient appears in no acute distress, alert, awake, non-toxic, well cp developed, well nourished. 15:20 Head/Face: Normocephalic, atraumatic. cp 15:20 Eyes: Periorbital structures: appear normal, Conjunctiva: normal, no exudate, no injection, Sclera: no appreciated abnormality, Lids and lashes: appear normal, bilaterally. 15:20 ENT: External ear(s): are unremarkable, Nose: is normal, Mouth: Lips: moist, Oral mucosa: pink and intact, moist, Posterior pharynx: Airway: no evidence of obstruction, patent, Tonsils: are normal in appearance, erythema, is not appreciated, exudate, is not appreciated. 15:20 Neck: Lymph nodes: no appreciated lymphadenopathy. 15:20 Chest/axilla: Inspection: normal. 15:20 Cardiovascular: Rate: normal. 15:20 Respiratory: the patient does not display signs of respiratory distress, Respirations: normal, no use of accessory muscles, no retractions, labored breathing, is not present, Breath sounds: are clear throughout, no decreased breath sounds. 15:20 Abdomen/GI: Inspection: abdomen appears normal, Palpation: abdomen is soft and non-tender, in all quadrants. 15:20 Neuro: Orientation: to person, place \\T\\ time. Mentation: is normal. Vital Signs: 14:35 BP 106 / 82; Pulse 71; Resp 17; Temp 98.2; Pulse Ox 97% on R/A; Weight 81.65 kg; Height ap3 4 ft. 11 in. (149.86 cm); 14:35 Body Mass Index 36.36 (81.65 kg, 149.86 cm) ap3 MDM: 14:50 Patient medically screened. cp 15:00 Differential diagnosis: gastritis, viral gastroenteritis, gastroenteritis, COVID-19, cp influenza. 16:23 Data reviewed: vital signs, nurses notes, lab test result(s). cp 16:23 Counseling: I had a detailed discussion with the patient and/or guardian regarding: the cp historical points, exam findings, and any diagnostic results supporting the discharge/admit diagnosis, lab results, to return to the emergency department if symptoms worsen or persist or if there are any questions or concerns that arise at home. 04/06 14:47 Order name: Urine Microscopic Only; Complete Time: 16:03 cp 04/06 16:03 Interpretation: Normal except: UBACT 20-50; SQEPI 5-10. cp 04/06 14:58 Order name: COVID-19 SARS RT PCR (Document "Date of Onset" if Symptomatic) 04/06 14:58 Order name: Influenza Screen (a \\T\\ B); Complete Time: 16:03 cp 04/06 15:06 Order name: Urine Dipstick-Ancillary; Complete Time: 16:03 EDCO 04/06 16:03 Interpretation: Normal except: UBLD Trace-intact. cp 04/06 15:39 Order name: Urine Culture EDCO 04/06 14:47 Order name: Urine Dipstick-Ancillary (obtain specimen); Complete Time: 15:33 cp 04/06 14:47 Order name: Urine Test (obtain specimen); Complete Time: 15:34 cp Administered Medications: 15:37 Drug: Zofran (Ondansetron) 4 mg Route: PO; jh6 Disposition Summary: 04/06/22 16:23 Discharge Ordered Location: Home cp Problem: new cp Symptoms: have improved cp Condition: Stable cp Diagnosis - Nausea cp Followup: cp - With: Private Physician - When: 1 - 2 days - Reason: Worsening of condition Discharge Instructions: - Discharge Summary Sheet cp - Nausea, Adult cp - Form - Excuse from Work, School, or Physical Activity cp Forms: - Medication Reconciliation Form cp - Thank You Letter cp - Antibiotic Education cp - Prescription Opioid Use cp Prescriptions: - Zofran 4 mg Oral Tablet - take 1 tablet by ORAL route every 12 hours As needed; 10 tablet; Refills: 0, cp Product Selection Permitted Addendum: 04/07/2022 23:26 Co-signature as Attending Physician, Brayan Walker MD. r n Signatures: Dispatcher [employer] [facility] Brayan Walker MD MD rn Page, Corey, PA PA cp Rosie Ying RN RN ap3 Verenice Rajan RN RN jh6 Corrections: (The following items were deleted from the chart) 16:20 04/06 15:00 Associated signs and symptoms: Pertinent positives: nausea, subjective cp fevers, sweats, Pertinent negatives: abdominal pain, constipation, diarrhea, vomiting, cp
--- NOTE | 2022-04-06 16:24 | ER ---
Nurse's Notes [facility] Name: Lydia Santizo Age: 22 yrs Sex: Female : 2000 Arrival Date: 04/06/2022 Time: 14:30 Bed 15 Private MD: Diagnosis: Nausea Presentation: 04/06 14:35 Chief complaint: Patient states: she hasn't been feeling well for 2 days. patient ap3 complains of sweats, chills, fevers and nausea. Patient states, "I've had COVID, but i just to make sure i dont' have it again.". Coronavirus screen: Client presents with at least one sign or symptom that may indicate coronavirus-19. Ebola Screen: No symptoms or risks identified at this time. Initial Sepsis Screen: Does the patient meet any 2 criteria? No. Patient's initial sepsis screen is negative. Does the patient have a suspected source of infection? No. Patient's initial sepsis screen is negative. Risk Assessment: Do you want to hurt yourself or someone else? Patient reports no desire to harm self or others. Onset of symptoms was April 04, 2022. 14:35 Method Of Arrival: Ambulatory ap3 14:35 Acuity: MIRACLE 4 ap3 Triage Assessment: 14:37 General: Appears in no apparent distress. Behavior is calm, cooperative. General: ap3 Reports chills for fever for feeling ill for fatigue for. Pain: Denies pain. Neuro: No deficits noted. Cardiovascular: Patient's skin is warm and dry. Respiratory: Airway is patent Respiratory effort is even, unlabored. Respiratory:. GI: Reports nausea. [employer]: 14:38 LMP 03/31/2022 ap3 Historical: - Allergies: 14:37 Bactrim; ap3 14:37 Sulfa (Sulfonamide Antibiotics); ap3 - Home Meds: 14:37 None [Active]; ap3 - PMHx: 14:37 None; ap3 - Immunization history:: Client reports having NOT received the Covid vaccine. - Social history:: Smoking status: Patient denies any tobacco usage or history of. Screenin:38 Abuse screen: Denies threats or abuse. Nutritional screening: No deficits noted. ap3 Tuberculosis screening: No symptoms or risk factors identified. Fall Risk None identified. Assessment: 14:40 General: Appears in no apparent distress. Behavior is calm, cooperative. jh6 14:40 Pain: Complains of pain in epigastric area Pain currently is 4 out of 10 on a pain 6 scale. Quality of pain is described as aching, crampy, Pain began 2-3 days ago. Is intermittent, Aggravated by exercise. GI: Abdomen is obese, Bowel sounds present X 4 quads. Abd is soft and non tender Reports upper abdominal pain, Patient currently denies constipation, diarrhea, nausea. 16:45 Reassessment: No changes from previously documented assessment. Patient is alert, jh6 oriented x 3, equal unlabored respirations, skin warm/dry/pink. verbal understanding of d/c instructions. Vital Signs: 14:35 BP 106 / 82; Pulse 71; Resp 17; Temp 98.2; Pulse Ox 97% on R/A; Weight 81.65 kg; Height ap3 4 ft. 11 in. (149.86 cm); 14:35 Body Mass Index 36.36 (81.65 kg, 149.86 cm) ap3 ED Course: 14:30 Patient arrived in ED. mr 14:37 Triage completed. ap3 14:38 Baljit Croft PA is PHCP. cp 14:38 Brayan Walker MD is Attending Physician. cp 14:38 Arm band placed on left wrist. ap3 14:39 Verenice Rajan, BENNY is Primary Nurse. jh6 14:44 COVID swab sent to lab. Flu and/or RSV swab sent to lab. jh6 14:45 Bed in low position. Call light in reach. Side rails up X 1. jh6 14:45 No provider procedures requiring assistance completed. jh6 16:03 Urine Culture Sent. zm 16:03 COVID-19 SARS RT PCR (Document "Date of Onset" if Symptomatic) Sent. zm 16:45 Patient did not have IV access during this emergency room visit. jh6 Administered Medications: 15:37 Drug: Zofran (Ondansetron) 4 mg Route: PO; jh6 Medication: 14:38 VIS not applicable for this client. ap3 Outcome: 16:23 Discharge ordered by . cp 16:45 Discharged to home ambulatory. jh6 16:45 Condition: stable 16:45 Discharge instructions given to patient, Instructed on discharge instructions, Demonstrated understanding of instructions, medications, Prescriptions given X 1. 16:46 Patient left the ED. jh6 Signatures: Megan Dumont mr Guerda, MARC Smiley cp, Amanda RN RN ap3 Verenice Rajan RN RN jh6 Christiana Fitzgerald
[2022-04-06 17:19] VITALS: BP 106/82; TEMP 98.2; O2SAT 97
== END 2022-04-06 16:46 | disposition home or self-care (01) ==
LOC: ER 14:27
DX: R11.0 Nausea (principal); Z20.822 Contact with and (suspected) exposure to COVID-19; Z88.1 Allergy status to other antibiotic agents; Z88.2 Allergy status to sulfonamides
CPT/HCPCS: 81003; 81015; 87086; 87088; 87804; 99283; U0003